=== PATIENT | female | born 1995 | race Caucasian/White ===

== ENCOUNTER 2017-06-21 13:14 | Emergency (ER) | payer OTHER ==
[2017-06-21] MEDS ORDERED: Ondansetron 4 MG/2 ML SDV IVPUSH ONE (13:18)
[2017-06-21] MEDS ORDERED: Sodium Chloride 0.9% 1,000 ML IV ONE (13:18)
--- NOTE | 2017-06-21 13:28 | EDM.PDOC ---
ED HPI GENERAL MEDICAL PROBLEM - General Stated Complaint: DEHYDRATED/WEAK Time Seen by Provider: 06/21/17 13:18 Source of Information: Reports: Patient History Limitations: Reports: No Limitations - History of Present Illness INITIAL COMMENTS - FREE TEXT/NARRATIVE: HISTORY AND PHYSICAL: History of present illness: Patient is a 21-year-old female who presents to the emergency room today with complaints of nausea, vomiting and generalized weakness. She is approximately 11 weeks and is following with Dr. Taiwo HDEZ. With the past several days she feels weak and has been unable to keep any fluids or food down. She does have ODT Zofran available to her, but felt that this was not working "well enough". She denies any fever, chills, chest pain, shortness of breath or cough. Denies any abdominal pain, vaginal bleeding or discharge, low back or abdominal pain/ cramping, diarrhea or constipation. Denies any near syncope or visual changes. LMP: Early April 2016. Review of systems: As per history of present illness and below otherwise all systems reviewed and negative. Past medical history: As per history of present illness and as reviewed below otherwise noncontributory. Surgical history: As per history of present illness and as reviewed below otherwise noncontributory. Social history: No reported history of drug or alcohol abuse. Family history: As per history of present illness and as reviewed below otherwise noncontributory. Physical exam: General: Well-developed and well-nourished 21-year-old female. Alert and oriented. Nontoxic appearing and in no acute distress. HEENT: Atraumatic, normocephalic, pupils equal and reactive bilaterally, negative for conjunctival pallor or scleral icterus, mucous membranes moist, throat clear, neck supple, nontender, trachea midline. No drooling or trismus noted. No meningeal signs Lungs: Clear to auscultation, breath sounds equal bilaterally, chest nontender. Heart: S1S2, regular rate and rhythm without overt murmur Abdomen: Soft, nondistended, nontender. Negative for masses or hepatosplenomegaly. Negative for costovertebral tenderness. Pelvis: Stable nontender. Genitourinary: Deferred. Rectal: Deferred. Skin: Intact, warm, dry. No lesions or rashes noted. Extremities: Atraumatic, negative for cords or calf pain. Neurovascular unremarkable. Neuro: Awake, alert, oriented. Cranial nerves II through XII unremarkable. Cerebellum unremarkable. Motor and sensory unremarkable throughout. Exam nonfocal. Notes: Routine lab work along with IV fluid and Zofran will be given and continue to monitor. Patient was seen by on 06/12/2017 and had lab work done along with urine study which showed she was positive for Hayde and [place]. She reports that she was informed of this but they wanted to hold off on treatment as she was asymptomatic. Lab work is normal. Did do an EKG as she felt she still felt "unwell". Tylenol was given for generalized headache. Vital signs remain stable. EKG shows a sinus rhythm with a rate of 62. We discussed limitations of medications during . She does have Zofran available to her which she felt worked somewhat but did not get complete relief with that. We discussed the use the Phenergan suppositories, which she declined. 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 She denies any further questions at this time. Diagnostics: CBC, CMP, UA, EKG Therapeutics: IV fluid, Zofran, Tylenol Impression: Nausea and vomiting in first trimester Plan: 1. Use your Zofran ODT (anti-nausea) medication as needed. May take one every 8 hours as needed. 2. Small frequent meals throughout the day and frequent sips of fluids to prevent dehydration. Get plenty of rest and breaks during physical activity. 3. Follow up with Dr Maravilla next week, or sooner as needed, further evaluation/ management of your nausea/vomiting. 4. Return to the ED as needed and as discussed. Definitive disposition and diagnosis as appropriate pending reevaluation and review of above. Duration: Day(s): Location: Reports: Generalized - Related Data Allergies Allergy/AdvReac Type Severity Reaction Status Date / Time No Known Allergies Allergy Verified 06/21/17 13:24 Home Meds: Home Meds Ondansetron HCl [Zofran] 4 mg PO DAILY 06/21/17 [History] Sertraline [Zoloft] 50 mg PO DAILY 06/21/17 [History] ED ROS GENERAL - Review of Systems Review Of Systems: ROS reveals no pertinent complaints other than HPI. ED EXAM, GI/ABD - Physical Exam Exam: See Below (See dictation) Course - Vital Signs Last Recorded V/S: Last Vital Signs Temp 98.1 F 06/21/17 13:24 Pulse 85 06/21/17 13:24 Resp 18 06/21/17 13:24 BP 145/59 H 06/21/17 13:24 Pulse Ox 95 06/21/17 13:24 - Orders/Labs/Meds Orders: Active Orders 24 hr Category Date Time Status EKG Documentation Completion [RC] STAT Care 06/21/17 14:45 Active CULTURE URINE [RM] Stat Lab 06/21/17 14:38 Ordered UA W/MICROSCOPIC [URIN] Stat Lab 06/21/17 14:10 Ordered Labs: Laboratory Tests 06/21/17 06/21/17 06/21/17 Range/Units 13:27 13:27 14:10 WBC 10.04 (4.0-11.0) K/uL RBC 4.03 L (4.30-5.90) M/uL Hgb 12.3 (12.0-16.0) g/dL Hct 35.3 L (36.0-46.0) % MCV 87.6 (80.0-98.0) fL MCH 30.5 (27.0-32.0) pg MCHC 34.8 (31.0-37.0) g/dL RDW Std Deviation 40.9 (28.0-62.0) fl RDW Coeff of Jose Luis 13 (11.0-15.0) % Plt Count 230 (150-400) K/uL MPV 9.50 (7.40-12.00) fL Neut % (Auto) 78.8 (48.0-80.0) % Lymph % (Auto) 12.1 L (16.0-40.0) % [place] % (Auto) 8.5 (0.0-15.0) % Eos % (Auto) 0.5 (0.0-7.0) % Baso % (Auto) 0.1 (0.0-1.5) % Neut # (Auto) 7.9 H (1.4-5.7) K/uL Lymph # (Auto) 1.2 (0.6-2.4) K/uL [place] # (Auto) 0.9 H (0.0-0.8) K/uL Eos # (Auto) 0.1 (0.0-0.7) K/uL Baso # (Auto) 0.0 (0.0-0.1) K/uL Nucleated RBC % 0.0 /100WBC Nucleated RBCs # 0 K/uL Sodium 137 (136-145) mmol/L Potassium 3.9 (3.5-5.1) mmol/L Chloride 104 (98-107) mmol/L Carbon Dioxide 21.8 (21.0-32.0) mmol/L BUN 11 (7.0-18.0) mg/dL Creatinine 0.8 (0.6-1.0) mg/dL Est Cr Clr Drug Dosing 32.23 mL/min Estimated GFR (MDRD) > 60.0 ml/min Glucose 94 (74-106) mg/dL Calcium 9.2 (8.5-10.1) mg/dL Total Bilirubin 0.5 (0.2-1.0) mg/dL AST 12 L (15-37) IU/L ALT 15 (14-63) IU/L Alkaline Phosphatase 39 L (46-116) U/L Total Protein 7.3 (6.4-8.2) g/dL Albumin 4.0 (3.4-5.0) g/dL Globulin 3.3 (2.0-3.5) g/dL Albumin/Globulin Ratio 1.2 L (1.3-2.8) Urine Color YELLOW Urine Appearance CLEAR Urine pH 7.0 (5.0-8.0) Ur Specific [place] 1.020 (1.001-1.035) Urine Protein NEGATIVE (NEGATIVE) mg/dL Urine Glucose (UA) NEGATIVE (NEGATIVE) mg/dL Urine Ketones NEGATIVE (NEGATIVE) mg/dL Urine Occult Blood NEGATIVE (NEGATIVE) Urine Nitrite NEGATIVE (NEGATIVE) Urine Bilirubin NEGATIVE (NEGATIVE) Urine Urobilinogen 0.2 (<2.0) EU/dL Ur Leukocyte Esterase SMALL (NEGATIVE) Urine RBC 0-1 (0-2/HPF) Urine WBC 0-2 (0-5/HPF) Ur Epithelial Cells MODERATE (NONE-FEW) Amorphous Sediment MODERATE (NEGATIVE) Urine Bacteria 1+ H (NEGATIVE) Meds: Medications Discontinued Medications Generic Name Dose Route Start Last Admin Trade Name Freq PRN Reason Stop Dose Admin Acetaminophen 1,000 mg 06/21/17 14:16 06/21/17 14:16 Tylenol Extra Strength PO 06/21/17 14:17 1,000 mg ONETIME ONE Administration Sodium Chloride 1,000 mls @ 999 mls/hr 06/21/17 13:18 06/21/17 13:32 Normal Saline IV 06/21/17 14:18 999 mls/hr STAT ONE Administration Ondansetron HCl 4 mg 06/21/17 13:18 06/21/17 13:32 Zofran IVPUSH 06/21/17 13:19 4 mg ONETIME ONE Administration Departure - Departure Time of Disposition: 14:47 Disposition: Home, Self-Care 01 Clinical Impression: Nausea/vomiting in - Discharge Information Instructions: Morning Sickness, [id number] Referrals: Aleksey Musa MD [Primary Care Provider] - Additional Instructions: The following information is given to patients seen in the emergency department who are being discharged to home. This information is to outline your options for follow-up care. We provide all patients seen in our emergency department with a follow-up referral. The need for follow-up, as well as the timing and circumstances, are variable depending upon the specifics of your emergency department visit. If you don't have a primary care physician on staff, we will provide you with a referral. We always advise you to contact your personal physician following an emergency department visit to inform them of the circumstance of the visit and for follow-up with them and/or the need for any referrals to a consulting specialist. The emergency department will also refer you to a specialist when appropriate. This referral assures that you have the opportunity for follow-up care with a specialist. All of these measure are taken in an effort to provide you with optimal care, which includes your follow-up. Under all circumstances we always encourage you to contact your private physician who remains a resource for coordinating your care. When calling for follow-up care, please make the office aware that this follow-up is from your recent emergency room visit. If for any reason you are refused follow-up, please contact the [facility] Emergency Department at and asked to speak to the emergency department charge nurse. [facility] [address] [place] [id number] 1. Use your Zofran ODT (anti-nausea) medication as needed. May take one every 8 hours as needed. 2. Small meals throughout the day and frequent sips of fluids to prevent dehydration. Get plenty of rest and breaks during physical activity. 3. Follow up with Dr Maravilla next week, or sooner as needed, further evaluation/ management of your nausea/vomiting. 4. Return to the ED as needed and as discussed. - My Orders Last 24 Hours: My Active Orders 06/21/17 14:10 UA W/MICROSCOPIC [URIN] Stat 06/21/17 14:38 CULTURE URINE [RM] Stat 06/21/17 14:45 EKG Documentation Completion [RC] STAT - Assessment/Plan Last 24 Hours: My Active Orders 06/21/17 14:10 UA W/MICROSCOPIC [URIN] Stat 06/21/17 14:38 CULTURE URINE [RM] Stat 06/21/17 14:45 EKG Documentation Completion [RC] STAT
[2017-06-21 13:54] LABS: CHLORIDE,CL 104 mmol/L (98-107); SODIUM,NA 137 mmol/L (136-145)
[2017-06-21] MEDS ORDERED: Acetaminophen 500 MG Tab PO ONE (14:16)
[2017-06-21 15:15] VITALS: BP 104/58
== END 2017-06-21 15:12 | disposition home or self-care (01) ==
LOC: MW.ED 13:14
DX: O21.9 Vomiting of pregnancy, unspecified (principal); Z3A.11 11 weeks gestation of pregnancy
CPT/HCPCS: 36415; 80053; 81001; 85025; 87086; 93005; 96361; 96374; 99283; A9270; J2405; J7040

== ENCOUNTER 2021-02-06 11:01 | Day surgery (SDC) | payer OTHER ==
[~2021-02-06 11:01] MED LIST: Lactated Ringers 1,000 ML IV SCH
[2021-02-06] MEDS ORDERED: Dexamethasone 4 MG/ML 5 ML MDV ONE (11:46)
[2021-02-06] MEDS ORDERED: Ondansetron 4 MG/2 ML SDV ONE (11:46)
[2021-02-06] MEDS ORDERED: Lidocaine 2% 5 ML SDV ONE (11:46)
--- NOTE | 2021-02-06 11:46 | PCM.PREANE ---
Preanesthetic Assessment - Procedure Proposed Procedure: Mass excision, Right Knee - Anesthesia/Transfusion/Family Hx Anesthesia History: Prior Anesthesia Without Reaction Family History of Anesthesia Reaction: No Transfusion History: No Prior Transfusion(s) - Review of Systems General: No Symptoms Pulmonary: No Symptoms Cardiovascular: No Symptoms Gastrointestinal: No Symptoms Neurological: No Symptoms Other: Reports: None - Physical Assessment NPO Status Date: 02/05/21 NPO Status Time: 23:00 Vital Signs: Last Vital Signs Temp 97.0 F 02/06/21 11:10 Pulse 67 02/06/21 11:10 Resp 15 02/06/21 11:10 BP 115/69 02/06/21 11:10 Pulse Ox 97 02/06/21 11:10 Height: 5 ft 8 in Weight: 74.843 kg ASA Class: 1 Mental Status: Alert & Oriented x3 Airway Class: Mallampati = 2 Dentition: Reports: Normal Dentition Thyro-Mental Finger Breadths: 3 Mouth Opening Finger Breadths: 3 ROM/Head Extension: Full Lungs: Clear to Auscultation, Normal Respiratory Effort Cardiovascular: Regular Rate, Regular Rhythm - Allergies Allergies/Adverse Reactions: Allergies Allergy/AdvReac Type Severity Reaction Status Date / Time No Known Allergies Allergy Verified 01/31/21 12:08 - Acknowledgements Anesthesia Type Planned: General Anesthesia Pt an Appropriate Candidate for the Planned Anesthesia: Yes Alternatives and Risks of Anesthesia Discussed w Pt/Guardian: Yes Pt/Guardian Understands and Agrees with Anesthesia Plan: Yes PreAnesthesia Questionnaire HEENT History: Reports: None Other HEENT History: wears glasses/contacts Cardiovascular History: Reports: None Respiratory History: Reports: None Gastrointestinal History: Reports: None Genitourinary History: Reports: None SAW TAILER History: Reports: Musculoskeletal History: Reports: Other (See Below) Other Musculoskeletal History: hx of fx left arm Neurological History: Reports: None Psychiatric History: Reports: Anxiety, Depression, Panic Attack Endocrine/Metabolic History: Reports: None Hematologic History: Reports: None Immunologic History: Reports: None Oncologic (Cancer) History: Reports: None Dermatologic History: Reports: None - Infectious Disease History Infectious Disease History: Reports: None - Past Surgical History Other Musculoskeletal Surgeries/Procedures:: right wrist and right leg surgery(birthmark removed) left arm surgery Dermatological Surgical History: Reports: None - SUBSTANCE USE Tobacco Use Status *Q: Never Tobacco User Recreational Drug Use History: No - HOME MEDS Home Medications: Home Meds . [No Known Home Meds] 01/31/21 [History] - CURRENT (IN HOUSE) MEDS Current Meds: Current Medications Lactated Ringer's (Ringers, Lactated) 1,000 mls @ 100 mls/hr IV ASDIRECTED [facility] Last Admin: 02/06/21 11:41 Dose: 100 mls/hr Documented by: Cefazolin Sodium/Dextrose 2 gm (/ Premix) 50 mls @ 100 mls/hr IV ONCALL JEFFERSON
[2021-02-06] MEDS ORDERED: Propofol 200 MG/20 ML SDV ONE (11:47)
[2021-02-06] MEDS ORDERED: fentaNYL 100 MCG/2 ML SDV ONE (11:47)
[2021-02-06] MEDS ORDERED: Midazolam 1 MG/ML 2 ML SDV ONE (11:47)
[2021-02-06] MEDS ORDERED: ceFAZolin 2 GM in Premix Bag 1 BAG IV SCH (12:00)
[2021-02-06] MEDS ORDERED: Bupivacaine 25%/EPINEPHrine/PF 30 ML ONE (12:08)
[2021-02-06] MEDS ORDERED: Octyl 2-Cyanoacrylate 1 Tube ONE (12:25)
[2021-02-06] MEDS ORDERED: Naloxone 0.4 MG/ML SDV IVPUSH PRN (12:27)
[2021-02-06] MEDS ORDERED: HYDROmorphone 1 MG/ML Syringe IVPUSH PRN (12:27)
[2021-02-06] MEDS ORDERED: fentaNYL 100 MCG/2 ML SDV IVPUSH PRN (12:27)
[2021-02-06] MEDS ORDERED: Albuterol 0.083% 2.5 MG/3 ML Neb Soln NEB PRN (12:27)
[2021-02-06] MEDS ORDERED: Ondansetron 4 MG/2 ML SDV IVPUSH PRN (12:27)
[2021-02-06] MEDS ORDERED: Metoclopramide 10 MG/2 ML SDV IVPUSH PRN (12:27)
[2021-02-06] MEDS ORDERED: Glycopyrrolate 0.2 MG/ML SDV ONE ×2 (12:40→12:41)
[2021-02-06] MEDS ORDERED: ePHEDrine 50 MG/ML SDV ONE (12:41)
--- NOTE | 2021-02-06 13:17 | PCM.POSTAN ---
POST ANESTHESIA ASSESSMENT - MENTAL STATUS Mental Status: Alert, Oriented - VITAL SIGNS Vital Signs: Last Vital Signs Temp 97.9 F 02/06/21 13:10 Pulse 75 02/06/21 13:16 Resp 19 02/06/21 13:16 BP 95/42 L 02/06/21 13:16 Pulse Ox 100 02/06/21 13:16 - RESPIRATORY Respiratory Status: Respiratory Rate WNL, Airway Patent, O2 Saturation Stable, Supplemental Oxygen - CARDIOVASCULAR CV Status: Pulse Rate WNL, Blood Pressure Stable - GASTROINTESTINAL GI Status: No Symptoms - POST OP HYDRATION Hydration Status: Adequate & Stable
--- NOTE | 2021-02-06 13:23 | PCM48HPAN ---
Post Anesthesia Note - EVALUATION WITHIN 48HRS OF ANESTHETIC Vital Signs in Normal Range: Yes Patient Participated in Evaluation: Yes Respiratory Function Stable: Yes Airway Patent: Yes Cardiovascular Function Stable: Yes Hydration Status Stable: Yes Pain Control Satisfactory: Yes Nausea and Vomiting Control Satisfactory: Yes Mental Status Recovered: Yes Vital Signs: Last Vital Signs Temp 97.9 F 02/06/21 13:10 Pulse 88 02/06/21 13:20 Resp 17 02/06/21 13:20 BP 98/46 L 02/06/21 13:20 Pulse Ox 100 02/06/21 13:20
[2021-02-06 14:16] VITALS: BP 104/64; PULSE 64
--- NOTE | 2021-02-07 11:36 | OR ---
SURGEON: Skip León MD DATE OF PROCEDURE: 02/06/2021 PREOPERATIVE DIAGNOSIS: Right knee mass. POSTOPERATIVE DIAGNOSIS: Right knee mass. PROCEDURE PERFORMED: Removal of right knee subcutaneous mass. PRIMARY SURGEON: Skip León MD. PUBLISHING SYSTEMS ANALYST: Jessica. ANESTHESIA: General. DESCRIPTION OF PROCEDURE: After obtaining informed consent, she was taken to the operating room, placed in supine position. After adequate induction of general anesthesia, she was prepped and draped in sterile fashion. A 1-inch incision was made transversely across this mass. The mass seemed to be well encapsulated except for the dorsal surface, which blended with the soft tissue that appeared to be extraarticular. It was meticulously removed without violating the mass. It measured about 2 cm in diameter. The base was then debrided and hemostasis was obtained, it was copiously irrigated and closed with 3-0 Vicryl sutures and Dermabond. She tolerated the procedure well, sent to recovery room stable. JAMI / COMFORT /[id number]
== END 2021-02-06 14:10 | disposition home or self-care (01) ==
LOC: MW.SDS 11:01
PROVIDERS: ATTEND Orthopaedic Surgery
DX: L72.12 Trichodermal cyst (principal); F41.9 Anxiety disorder, unspecified; F32.A Depression, unspecified; G47.00 Insomnia, unspecified; G43.009 Migraine without aura, not intractable, without status migrainosus; Z98.890 Other specified postprocedural states
CPT/HCPCS: 11402; 81025; A9270; J0690; J1100; J2250; J2704; J3490; J7120; 00400; J2405; J3010

== ENCOUNTER 2021-05-02 16:03 | Emergency (ER) | payer OTHER ==
[2021-05-02] MEDS ORDERED: Sodium Chloride 0.9% 2.5 ML Syringe FLUSH PRN (18:37)
[2021-05-02] MEDS ORDERED: Sodium Chloride 0.9% 10 ML Syringe FLUSH PRN (18:37)
[2021-05-02 19:14] LABS: BLOOD UREA NITROGEN,BUN 17 mg/dL (7.0-18.0); CHLORIDE,CL 106 mmol/L (98-107); GLUCOSE RANDOM 102 mg/dL (74-106); LIPASE 80 U/L (73-393); POTASSIUM,K 3.8 mmol/L (3.5-5.1); SODIUM,NA 140 mmol/L (136-145)
[2021-05-02] MEDS ORDERED: Morphine 2 MG/ML SYRINGE IVPUSH ONE (20:14)
[2021-05-02] MEDS ORDERED: Ketorolac 30 MG/ML SDV IVPUSH ONE (20:15)
[2021-05-02] MEDS ORDERED: Ondansetron 4 MG/2 ML SDV IVPUSH ONE (20:15)
[2021-05-02] MEDS ORDERED: Iopamidol 755 MG/ML 500 ML Multipack Bottle IVPUSH STA (20:34)
[2021-05-02 22:05] VITALS: BP 114/69; PULSE 66
== END 2021-05-02 21:30 | disposition home or self-care (01) ==
LOC: MW.ED 16:03
DX: K59.00 Constipation, unspecified (principal)
CPT/HCPCS: 36415; 74177; 80053; 81001; 83690; 84703; 85025; 87086; 96374; 96375; 99284; J1885; J2270; J2405; Q9967

== ENCOUNTER 2021-10-16 09:58 | Emergency (ER) | payer OTHER ==
[2021-10-16] MEDS ORDERED: Sodium Chloride 0.9% 1,000 ML IV ONE (10:11)
[2021-10-16] MEDS ORDERED: Ketorolac 30 MG/ML SDV IVPUSH ONE (10:12)
[2021-10-16 10:44] LABS: CARBON DIOXIDE,CO2 24.5 mmol/L (21.0-32.0); POTASSIUM,K 3.7 mmol/L (3.5-5.1)
[2021-10-16] MEDS ORDERED: Albuterol/Ipratropium 3.0-0.5 MG/3 ML Neb Soln NEB ONE (11:11)
[2021-10-16 12:08] VITALS: BP 105/65; PULSE 85
== END 2021-10-16 12:04 | disposition home or self-care (01) ==
LOC: MW.ED 09:58
DX: J40 Bronchitis, not specified as acute or chronic (principal); Z79.899 Other long term (current) drug therapy; Z20.822 Contact with and (suspected) exposure to COVID-19
CPT/HCPCS: 36415; 71045; 80053; 84484; 85025; 87635; 93005; 96361; 96374; 99285; J1885; J7030; J7620-GY; U0002

== ENCOUNTER 2022-05-22 08:17 | Day surgery (SDC) | payer OTHER ==
[~2022-05-22 08:17] MED LIST changes: +Albuterol 0.083% 2.5 MG/3 ML Neb Soln NEB PRN; +Bupivacaine 0.5% 30 ML SDV ONE; +HYDROmorphone 1 MG/ML Syringe IVPUSH PRN; +Metoclopramide 10 MG/2 ML SDV IVPUSH PRN; +Morphine 2 MG/ML SYRINGE IVPUSH PRN; +Naloxone 0.4 MG/ML SDV IVPUSH PRN; +Ondansetron 4 MG/2 ML SDV IVPUSH PRN; +Sodium Chloride 0.9% 10 ML Syringe FLUSH PRN; +Sodium Chloride 0.9% 2.5 ML Syringe FLUSH PRN; +Sodium Chloride 0.9% 20 ML SDV IV PRN; +ceFAZolin 2 GM in Sodium Chloride 0.9% 50 ML IV ONE; +droPERidol 5 MG/2 ML SDV IVPUSH PRN; +fentaNYL 50 MCG/ML SDV IVPUSH PRN
[2022-05-22] MEDS ORDERED: Dexamethasone 4 MG/ML 5 ML MDV ONE (08:58)
[2022-05-22] MEDS ORDERED: Sugammadex Sodium 200 MG/2 ML VIAL ONE (08:58)
[2022-05-22] MEDS ORDERED: Rocuronium Bromide 50 MG/5 ML Syringe ONE (08:58)
[2022-05-22] MEDS ORDERED: Ondansetron 4 MG/2 ML SDV ONE (08:58)
[2022-05-22] MEDS ORDERED: Propofol 200 MG/20 ML SDV ONE ×3 (08:58→09:42)
[2022-05-22] MEDS ORDERED: Ketorolac 30 MG/ML SDV ONE (08:58)
[2022-05-22] MEDS ORDERED: Lidocaine 2% 5 ML SDV ONE (08:58)
[2022-05-22] MEDS ORDERED: fentaNYL 100 MCG/2 ML SDV ONE (08:59)
[2022-05-22] MEDS ORDERED: Ropivacaine 0.5% 5 MG/ML 30 ML SDV ONE (09:04)
[2022-05-22] MEDS ORDERED: Bupivacaine 25%/EPINEPHrine/PF 30 ML ONE (09:04)
[2022-05-22] MEDS ORDERED: Water For Injection, Sterile 20 ML ONE (09:27)
[2022-05-22] MEDS ORDERED: Dexmedetomidine 200 MCG/2 ML SDV ONE (09:27)
[2022-05-22] MEDS ORDERED: ceFAZolin 2 GM Vial ONE (09:51)
[2022-05-22 12:41] VITALS: BP 101/66; PULSE 53
== END 2022-05-22 12:52 | disposition home or self-care (01) ==
LOC: MW.SDS 08:17
PROVIDERS: ATTEND Surgery
DX: K81.1 Chronic cholecystitis (principal); K82.8 Other specified diseases of gallbladder; F41.9 Anxiety disorder, unspecified; F32.A Depression, unspecified; G47.00 Insomnia, unspecified; G43.009 Migraine without aura, not intractable, without status migrainosus
CPT/HCPCS: 47562; 81025; J0131; J0690; J1100; J1170; J1885; J2405; J2704; J2795; J3010; J3490; J7030; J7120; 00790; 64488

== ENCOUNTER 2024-03-17 14:08 | Emergency (ER) | payer MEDICAID ==
[2024-03-17 14:44] LABS: BASOPHILS ABSOLUTE AUTO 0.01 K/uL (0.00-0.20); BASOPHILS PERCENT AUTO 0.1 % (0.0-1.0); EOSINOPHILS ABSOLUTE AUTO 0.04 K/uL (0.00-0.45); EOSINOPHILS PERCENT AUTO 0.5 % (0.0-6.0); HEMATOCRIT 34.2 % (37.0-47.0); HEMOGLOBIN 12.3 g/dL (12.0-16.0); IMMATURE GRAN ABSOLUTE AUTO 0.05 K/uL (0.00-0.05); IMMATURE GRAN PERCENT AUTO 0.7 % (0.0-0.4); LYMPHOCYTES ABSOLUTE AUTO 0.72 K/uL (1.00-4.80); LYMPHOCYTES PERCENT AUTO 9.4 % (24.0-44.0); MEAN CORPUSCULAR HEMOGLOBIN 31.2 pg (28.0-32.0); MEAN CORPUSCULAR VOLUME 86.8 fL (83.0-99.0); MEAN PLATELET VOLUME 9.2 fL (9.4-12.3); MONOCYTES ABSOLUTE AUTO 0.44 K/uL (0.00-0.80); MONOCYTES PERCENT AUTO 5.7 % (0.0-8.0); NEUTROPHILS ABSOLUTE AUTO 6.43 K/uL (1.80-7.70); NEUTROPHILS PERCENT AUTO 83.6 % (41.0-71.0); PLATELET COUNT,PLT 211 K/uL (150-400); RED BLOOD CELL COUNT 3.94 M/uL (4.10-5.30); WHITE BLOOD CELL COUNT,WBC 7.69 K/uL (3.9-11.3)
[2024-03-17 15:13] LABS: ALBUMIN 3.4 g/dL (3.4-5.0); BILIRUBIN TOTAL 0.6 mg/dL (0.2-1.0); CALCIUM 8.3 mg/dL (8.5-10.1); CARBON DIOXIDE,CO2 19.8 mmol/L (21.0-32.0); CREATININE 0.6 mg/dL (0.6-1.0); EST CRCL DRUG DOSING (CG) 142.07 mL/min; POTASSIUM,K 3.5 mmol/L (3.5-5.1); PROTEIN TOTAL,TP 6.7 g/dL (6.4-8.2)
[2024-03-17] MEDS: Sodium Chloride 0.9% 1,000 ML IV ONE (15:37)
[2024-03-17 15:38] LABS: APPEARANCE,URINE CLEAR; COLOR,URINE YELLOW; PH,URINE 6.5 (5.0-8.0); PROTEIN,URINE NEGATIVE (NEGATIVE)
[2024-03-17 15:39] LABS: BILIRUBIN,URINE NEGATIVE (NEGATIVE); GLUCOSE,URINE NEGATIVE (NEGATIVE); KETONES,URINE MODERATE mg/dL (NEGATIVE); LEUKOCYTE ESTERASE,URINE NEGATIVE (NEGATIVE); NITRITE,URINE NEGATIVE (NEGATIVE); OCCULT BLOOD,URINE NEGATIVE (NEGATIVE); UROBILINOGEN,URINE <2.0 EU/dL (<2.0)
[2024-03-17] MEDS: Acetaminophen 500 MG Tab PO ONE (15:41)
[2024-03-17] MEDS: Metoclopramide 10 MG/2 ML SDV IVPUSH ONE (15:44)
[2024-03-17] MEDS: Dextrose 5%-0.9% NaCl 1,000 ML IV STA (16:37)
[2024-03-17 18:28] VITALS: BP 103/61; PULSE 86
== END 2024-03-17 18:26 | disposition home or self-care (01) ==
LOC: MW.ED 14:08
DX: O21.0 Mild hyperemesis gravidarum (principal); Z3A.15 15 weeks gestation of pregnancy; Z75.8 Other problems related to medical facilities and other health care
CPT/HCPCS: 36415; 80053; 81003; 85025; 87428-QW; 96361; 96374; 99284; 99284-25; A9270-GY; J2765; J7030; J7042

== ENCOUNTER 2024-09-03 11:12 | Inpatient (IN) | payer MEDICAID ==
[2024-09-03] MEDS ORDERED: Sodium Chloride 0.9% 10 ML Syringe FLUSH PRN (11:49)
[2024-09-03] MEDS ORDERED: Sodium Chloride 0.9% 2.5 ML Syringe FLUSH PRN (11:49)
[2024-09-03] MEDS ORDERED: Butorphanol 1 MG/ML SDV IVPUSH PRN (11:49)
[2024-09-03] MEDS ORDERED: Carboprost Tromethamine 250 MCG/1 mL Vial IM PRN (11:49)
[2024-09-03] MEDS ORDERED: Water For Irrigation,Sterile 1,000 ML Container IRR PRN (11:49)
[2024-09-03 12:13] LABS: MEAN PLATELET VOLUME 10.5 fL (9.4-12.3); NRBC ABSOLUTE 0.00 K/uL (0.00-0.02); NRBC PERCENT 0.0 /100WBC (0.0-0.2); PLATELET COUNT,PLT 199 K/uL (150-400); RED BLOOD CELL COUNT 4.03 M/uL (4.10-5.30); WHITE BLOOD CELL COUNT,WBC 14.50 K/uL (3.9-11.3)
[2024-09-03] MEDS ORDERED: ePHEDrine 50 MG/ML SDV IVPUSH PRN (13:57)
[2024-09-03] MEDS ORDERED: dexmedeTOMIDine HCl 200 MCG/2 ML SDV EPIDUR SCH (14:00)
[2024-09-03 17:28] LABS: AMPHETAMINES SCREEN, URINE NEGATIVE (CUTOFF=500); BUPRENORPHINE SCREEN,URINE NEGATIVE (CUTOFF=10); METHADONE SCREEN, URINE NEGATIVE (CUTOFF=200); METHAMPHETAMINES SCREEN, URINE NEGATIVE (CUTOFF=500); OXYCODONE SCREEN,URINE NEGATIVE (CUT0FF=100); PCP SCREEN,URINE NEGATIVE (CUTOFF=25); THC SCREEN,URINE 20 NG/ML NEGATIVE (CUTOFF=50)
[2024-09-03] MEDS: Lactated Ringers 1,000 ML IV SCH (19:11)
[2024-09-03] MEDS: Ropivacaine HCl/PF 400 MG in Premix Bag 1 BAG EPIDUR SCH (21:46)
[2024-09-04] MEDS: Oxytocin/0.9 % Sodium Chloride 30 UNIT/500 ML BAG IV SCH (03:29)
[2024-09-04] MEDS ORDERED: Aluminum Hydroxide/Magnesium Hydroxide/Simethicone Susp 30 ML Cup PO PRN (03:46)
[2024-09-04] MEDS ORDERED: Ondansetron 4 MG/2 ML SDV IVPUSH PRN (03:46)
[2024-09-04 04:49] LABS: PH,UMBILICAL ARTERIAL 7.26 (7.18-7.38); PH,UMBILICAL VENOUS 7.31 (7.25-7.45)
[2024-09-04] MEDS: Witch Hazel Medicated Pads 40/Jar TOP PRN (07:39)
[2024-09-04] MEDS: Benzocaine/Menthol 20%-0.5% Spray 78 GM Cannister TOP PRN (07:40)
[2024-09-04] MEDS: Lanolin 100% Cream 7 GM Tube TOP PRN (07:40)
[2024-09-05 05:53] LABS: BASOPHILS ABSOLUTE AUTO 0.05 K/uL (0.00-0.20); BASOPHILS PERCENT AUTO 0.4 % (0.0-1.0); EOSINOPHILS ABSOLUTE AUTO 0.14 K/uL (0.00-0.45); EOSINOPHILS PERCENT AUTO 1.1 % (0.0-6.0); IMMATURE GRAN ABSOLUTE AUTO 0.35 K/uL (0.00-0.05); IMMATURE GRAN PERCENT AUTO 2.9 % (0.0-0.4); LYMPHOCYTES ABSOLUTE AUTO 1.89 K/uL (1.00-4.80); LYMPHOCYTES PERCENT AUTO 15.4 % (24.0-44.0); MEAN PLATELET VOLUME 10.4 fL (9.4-12.3); MONOCYTES ABSOLUTE AUTO 1.00 K/uL (0.00-0.80); MONOCYTES PERCENT AUTO 8.2 % (0.0-8.0); NEUTROPHILS ABSOLUTE AUTO 8.81 K/uL (1.80-7.70); NEUTROPHILS PERCENT AUTO 72.0 % (41.0-71.0); NRBC ABSOLUTE 0.00 K/uL (0.00-0.02); NRBC PERCENT 0.0 /100WBC (0.0-0.2); PLATELET COUNT,PLT 175 K/uL (150-400); RED BLOOD CELL COUNT 3.50 M/uL (4.10-5.30); WHITE BLOOD CELL COUNT,WBC 12.24 K/uL (3.9-11.3)
[2024-09-05 07:04] LABS: A/G RATIO 0.7 (0.9-1.6); ALANINE AMINOTRANSFERASE,ALT 8.0 IU/L (14-63); ASPARTATE AMNIOTRANSFERASE,AST 10.0 IU/L (15-37); BILIRUBIN TOTAL 0.2 mg/dL (0.2-1.0); BLOOD UREA NITROGEN,BUN 11.0 mg/dL (7.0-18.0); CARBON DIOXIDE,CO2 22.0 mmol/L (21.0-32.0); CHLORIDE,CL 106.0 mmol/L (98-107); CREATININE 0.8 mg/dL (0.6-1.0); EST CRCL DRUG DOSING (CG) 106.56 mL/min; ESTIMATED GFR 104.0 mL/min (>60); GLUCOSE RANDOM 81.0 mg/dL (74-106); POTASSIUM,K 3.8 mmol/L (3.5-5.1); PROTEIN TOTAL,TP 5.4 g/dL (6.4-8.2); SODIUM,NA 138.0 mmol/L (136-145)
[2024-09-05 14:13] VITALS: BP 124/76; PULSE 80
== END 2024-09-05 14:05 | disposition home or self-care (01) | DRG 807 ==
LOC: MW.OBCHECK 11:12 → MW.OB 11:13 → MW.OBCHECK 11:57 → OBSVTOIN 09-04 03:46 → MW.OB 09-04 05:39
PROVIDERS: ADMIT Obstetrics & Gynecology; ATTEND Obstetrics & Gynecology Obstetrics
PROC: 10E0XZZ Delivery of Products of Conception, External Approach (ICD-10-PCS; principal; 2024-09-04)
PROC: 3E0R3BZ Introduction of Anesthetic Agent into Spinal Canal, Percutaneous Approach (ICD-10-PCS; 2024-09-04)
DX: O99.214 Obesity complicating childbirth (principal); Z37.0 Single live birth; O99.02 Anemia complicating childbirth; O99.344 Other mental disorders complicating childbirth; Z3A.38 38 weeks gestation of pregnancy; Z98.890 Other specified postprocedural states; Z79.899 Other long term (current) drug therapy
CPT/HCPCS: 01967; 36415; 51702; 59025; 59409; 80053; 80305; 82803; 85025; 85027; 86592; 86850; 86900; 86901; A9270-GY; J2590; J2795; J7120